=== PATIENT | male | born 1990 | race Caucasian/White ===

== ENCOUNTER 2020-03-02 00:42 | Emergency (ER) | payer SELFPAY ==
[~2020-03-02] VITALS: Ht 170.2 cm; Wt 55.0 kg
[2020-03-02 01:36] LABS: BASOPHILS # (AUTO) 0.11 x10^3/uL (0-0.1); BASOPHILS % (AUTO) 1 % (0-1); EOSINOPHILS # (AUTO) 0.01 x10^3/uL (0-0.4); EOSINOPHILS % (AUTO) 0 % (1-7); LYMPHOCYTES # (AUTO) 2.66 x10^3/uL (1-3.4); LYMPHOCYTES % (AUTO) 19 % (22-44); MD NO; MEAN CORPUSCULAR HEMOGLOBIN 31.4 pg (27.5-34.5); MEAN CORPUSCULAR HGB CONC 33.8 g/dL (33.2-36.2); MEAN CORPUSCULAR VOLUME 92.8 fL (81-97); MEAN PLATELET VOLUME 8.9 fL (7.4-10.4); MONOCYTES # (AUTO) 1.36 x10^3/uL (0.2-0.8); MONOCYTES % (AUTO) 10 % (2-9); NEUTROPHILS # (AUTO) 9.69 x10^3/uL (1.8-6.8); NEUTROPHILS % (AUTO) 70 % (42-75); PLATELET COUNT 314 x10^3/uL (130-400); RED BLOOD COUNT 5.31 x10^6/uL (4.38-5.82); RED CELL DISTRIBUTION WIDTH 14.6 % (9.4-14.8)
[2020-03-02 01:45] LABS: ALBUMIN 3.8 g/dL (3.4-5.0); ANION GAP 9 mmol/L (5-15); CALCIUM 9.8 mg/dL (8.5-10.1); CHLORIDE 102 mmol/L (98-107); CREATININE 1.11 mg/dL (0.7-1.3); SALICYLATE LEVEL 5.2 mg/dL (2.8-20.0)
--- NOTE | 2020-03-02 02:03 | NUR ---
THIS IS A 29Y M THAT COMES IN TONIGHT WITH C/O HEARING VOICES "THAT ARE HOMICIDAL AND SUICIDAL." WHEN ASKED PT STS "THEY ARE JUST TELLING ME TO DO A BUNCH OF EVIL THINGS AND HURT PEOPLE AND MYSELF." PT DROWSY AND FALLS ASLEEP DURING CONVERSATION AT THIS TIME HOWEVER STS HE HAS BEEN HEARING VOICES FOR YEARS. PT RESTING ON GURNEY AND STS HE IS UNABLE TO PRODUCE A URINE SAMPLE AT THIS TIME.
--- NOTE | 2020-03-02 03:07 | NUR ---
TELEPSYCH CONTACTED AND REQUEST FOR CONSULT INITIATED. CAMERA [id number] PLAC[address] IN ROOM.
--- NOTE | 2020-03-02 03:15 | NUR ---
SPOKE WITH TELE PSYCH TO GIVE REPORT ON PT PRIOR TO CONSULT AT THIS TIME
--- NOTE | 2020-03-02 04:12 | NUR ---
SITTER IN HALLWAY FOR MONITORING AND SAFETY, PT HAS NO NEEDS AT THIS TIME.
--- NOTE | 2020-03-02 04:26 | NUR ---
MD AT BEDSIDE TO ASSESS PT
--- NOTE | 2020-03-02 05:09 | NUR ---
PT MOVED TO ROOM 2, PT AMBULATED WITH STEADY GAIT REFUSING GOWN AT THIS TIME
--- NOTE | 2020-03-02 06:04 | NUR ---
PT RESTING ON GURNEY AT THIS TIME ELISSA. PT EXPRESSES NO NEEDS, SITTER IN HALLWAY FOR SAFETY
--- NOTE | 2020-03-02 06:05 | NUR ---
TP: CHART SENT TO [facility]
--- NOTE | 2020-03-02 07:23 | NUR ---
Report recieved from Farnaz ZEE. Pt sleeping in bed, no distress. Aware pt needs urine. Sitter remains at beisde. room remains secure. Meal tray ordered. Cont to monitor.
--- NOTE | 2020-03-02 09:35 | NUR ---
Pt sleeping in bed, easy to awake. Meal tray delivered. Room remains secured, sitter remains at bedside. Cont to monitor.
--- NOTE | 2020-03-02 10:55 | NUR ---
Pt resting in bed, given water per request. Pt states he continues with HI/SI thoughts. Room remains secured, sitter remains at beside. Cont to monitor.
--- NOTE | 2020-03-02 12:31 | NUR ---
curator of collections Yaron at bedside for assessment. Diet tray ordered.
[2020-03-02] MEDS ORDERED: NICOTINE 21 MG/24 HR PATCH.TD24 TD PRN (13:00)
[2020-03-02] MEDS ORDERED: BENZTROPINE 1 MG TABLET PO PRN (13:00)
--- NOTE | 2020-03-02 13:03 | NUR ---
Report given to Adamaris ZEE.
--- NOTE | 2020-03-02 13:08 | NUR ---
AFTER RECEIVING REPORT ASSUMED CARE. PT IN DIRECT VIEW OF SITTER WITH ALL EQUIPMENT SECURED BEHIND PULL DOWN DOOR
[2020-03-02] MEDS ORDERED: RISPERIDONE 2 MG TABLET ONE ×2 (13:12→13:15)
[2020-03-02] MEDS: RISPERIDONE 1 MG TABLET PO SCH ×2 (13:19→21:00)
--- NOTE | 2020-03-02 13:22 | NUR ---
NICKOLAS RN: PT MEDICATED ORDERED. PT CURRENTLY RESTING ON GURNEY IN QUIET, DARK ROOM. PT CALM AND COOPERATIVE AT THIS TIME. PT MEDICATED ORDERED. PT AO X 4. SKIN PWD. RESP EVEN AND UNLABORED. GARAGE DOORS DOWN IN ROOM. SITTER AT DOORSIDE.
--- NOTE | 2020-03-02 14:57 | NUR ---
PT ONTO HOSPITAL BED WITH ASSISTANCE OF TECH
--- NOTE | 2020-03-02 17:57 | NUR ---
WOKE PT UP AND PT AMBULATED ACROSS ABREU TO GIVE URINE SAMPLE. URINE THICK AND CLOUDY. SENT TO LAB WITH UA WITH CULTURE IF INDICATED ORDERED ALONG WITH UDOA. PT PROVIDED DINNER TRAY.QUIET AND COOPERATIVE
[2020-03-02 18:13] LABS: AMPHETAMINE SCREEN, URINE Positive (Negative); BARBITURATE SCREEN, URINE Negative (Negative); BENZODIAZEPINE SCREEN, URINE Negative (Negative); CANNABINOID SCREEN, URINE Positive (Negative); COCAINE SCREEN, URINE Positive (Negative); METHADONE SCREEN, URINE Negative (Negative); OPIATE SCREEN, URINE Negative (Negative)
[2020-03-02 18:15] LABS: MICROSCOPIC INDICATED
[2020-03-02 18:32] LABS: CULTURE INDICATED? NO
--- NOTE | 2020-03-02 18:58 | NUR ---
REPORT TO TOM ZEE
--- NOTE | 2020-03-03 06:56 | NUR ---
report received from christian morillo.
--- NOTE | 2020-03-03 08:02 | NUR ---
PT SLEEPING ON HOSPITAL BED, SITTER IN ABREU FOR SAFETY.
--- NOTE | 2020-03-03 08:11 | NUR ---
meal tray provided at this time.
--- NOTE | 2020-03-03 08:12 | NUR ---
Kayleigh prieto in [facility] - 03/03/20 at 0813 by YULISA meal elmer provided at this time.
[2020-03-03] MEDS ORDERED: RISPERIDONE 2 MG TABLET ONE (08:27)
[2020-03-03] MEDS: RISPERIDONE 1 MG TABLET PO SCH (08:30)
--- NOTE | 2020-03-03 08:31 | NUR ---
PT MEDICATED PER EMAR. PT TOLERATED WELL.
--- NOTE | 2020-03-03 09:30 | NUR ---
PT SLEEPING ON HOSPITAL BED, SITTER IN ABREU FOR SAFETY.
--- NOTE | 2020-03-03 10:14 | NUR ---
PT SLEEPING ON HOSPITAL BED, SITTER IN ABREU FOR SAFETY.
--- NOTE | 2020-03-03 11:09 | NUR ---
MEAL TRAY ORDERED AT THIS TIME.
--- NOTE | 2020-03-03 11:13 | NUR ---
GREEN CHAIN PULLER AT BEDSIDE TO EVALUATE AT THIS TIME.
--- NOTE | 2020-03-03 11:32 | NUR ---
REPORT GIVEN TO YAYO RUGGIERO AT [facility].
[2020-03-03 11:39] VITALS: BP 107/72
--- NOTE | 2020-03-03 12:48 | NUR ---
PT SLEEPING ON HOSPITAL BED, SITTER IN ABREU FOR SAFETY.
== END 2020-03-03 13:04 ==
LOC: ED 01:16
DX: R45.851 Suicidal ideations (principal); F23 Brief psychotic disorder; R45.850 Homicidal ideations; F20.9 Schizophrenia, unspecified; F41.9 Anxiety disorder, unspecified
CPT/HCPCS: 36415; 80048; 80307; 81001; 82040; 85025; 99285